=== PATIENT | female | born 1950 | race Asian ===

== ENCOUNTER 2022-01-06 08:00 | Inpatient (IN) ==
[~2022-01-06 08:00] MED LIST: ACETAMINOPHEN 325 MG TABLET PO PRN; DEXTROSE 10% 250 ML BAG IV PRN; GLUCAGON 1 MG VIAL IM PRN; MAGNESIUM HYDROXIDE SUSP 30 ML UDCUP PO PRN; NALOXONE 0.4 MG/ML VIAL IV PRN; traMADol 50 MG TABLET PO PRN
[2022-01-06 09:19] LABS: Eosinophils % 1.3 % (0.00-10.9); Hematocrit 28.4 VOL% (35.7-47.0); Hemoglobin 9.2 GM/DL (12.0-16.0); Immature Granulocytes % 0.3 %; Immature Granulocytes Absolute 0.01 #; Lymphocytes # 1.1 10*3/uL (1.4-4.0); Lymphocytes % 33.8 % (21.3-54.2); Mean Corpuscular HGB Conc 32.4 GM/DL (32-36); Mean Corpuscular Volume 90.7 FL (87-102); Mean Platelet Volume 10.4 FL (9.6-12.0); Monocytes # 0.5 10*3/uL (0.11-0.8); Monocytes % 16.2 % (1.7-12.7); Neutrophils % 47.4 % (38.7-73.9); Platelet Count 179 T/CUMM (130-400); Red Blood Count 3.13 MC/CUMM (3.8-5.5); Red Cell Distribution Width 13.2 % (9.3-17.3); White Blood Count 3.1 T/CUMM (4-12)
[2022-01-06 09:33] LABS: PT Patient Result 11.1 SECS (10.1-12.1)
[2022-01-06 09:50] LABS: Eosinophils 3 % (0-10); Lymphocytes 29 % (20-55); Platelet Estimate Adequate; Total Cells Counted 100
[2022-01-06 09:51] LABS: Calcium 6.8 MG/DL (8.5-10.1); Osmolality,Calculated 282.8 MOS/KG (273-304); Phosphorous 7.8 MG/DL (2.5-4.9); Potassium 4.7 MMOL/L (3.5-5.1); Risk Ratio 2.86; VLDL Cholesterol 39.8 MG/DL
[2022-01-06] MEDS ORDERED: DIAZEPAM 5 MG TABLET PO ONE (10:06)
[2022-01-06] MEDS ORDERED: BUPIVACAINE MPF 0.25% 10 ML VIAL ONE (10:13)
[2022-01-06] MEDS ORDERED: TISSUE ADHESIVE 1 EACH APPLICATOR TOP ONE (10:13)
[2022-01-06] MEDS ORDERED: LIDOCAINE 1%/EPI INJ 20 ML VIAL ONE (10:14)
[2022-01-06] MEDS ORDERED: fentaNYL 100 MCG/2 ML VIAL ONE (11:51)
[2022-01-06] MEDS ORDERED: propofoL 200 MG/20 ML VIAL IV ONE (11:51)
[2022-01-06] MEDS ORDERED: ETOMIDATE 40 MG/20 ML VIAL IV ONE (11:51)
[2022-01-06] MEDS ORDERED: LIDOCAINE 2% 5 ML VIAL ONE (11:51)
[2022-01-06] MEDS ORDERED: SEVOFLURANE 1 UNIT/15 MINUTE INH ONE ×4 (12:11→13:09)
[2022-01-06] MEDS ORDERED: ONDANSETRON 4 MG/2 ML VIAL ONE (12:11)
[2022-01-06] MEDS ORDERED: EPOETIN ALFA-EPBX 10,000 UNIT/ML VIAL SUBCUT ONE (12:30)
[2022-01-06] MEDS ORDERED: ePHEDrine 50 MG/ML VIAL ONE (12:32)
[2022-01-06] MEDS ORDERED: SUGAMMADEX 200 MG/2 ML VIAL IV ONE (12:35)
[2022-01-06] MEDS ORDERED: PHENYLEPHRINE 1 MG/10 ML SYRINGE IV ONE (12:36)
[2022-01-06] MEDS: PANTOPRAZOLE 40 MG TABLET PO SCH (13:42)
[2022-01-06] MEDS: INSULIN LISPRO 100 UNIT/ML SUBCUT SCH ×2 (13:42→17:05)
[2022-01-06] MEDS: SODIUM CHLORIDE 0.9% 250 ML IV SCH (14:06)
[2022-01-06] MEDS ORDERED: ZOLPIDEM 5 MG TABLET PO PRN (15:56)
[2022-01-06] MEDS: SODIUM BICARBONATE 650 MG TABLET PO SCH ×2 (17:03→21:25)
[2022-01-06] MEDS: carvediloL 25 MG TABLET PO SCH (17:04)
[2022-01-06] MEDS: DOXAZOSIN 1 MG TABLET PO SCH (21:25)
[2022-01-07] MEDS: HYDROmorphone 1 MG/1 ML SYRINGE IV PRN ×2 (01:34→11:44)
[2022-01-07] MEDS: SODIUM CHLORIDE 0.9% 250 ML IV SCH ×2 (02:21→11:41)
[2022-01-07 05:25] LABS: % Iron Saturation 10.4 % (18-50); Ferritin 242.2 ng/mL (8-252)
[2022-01-07 06:00] LABS: Hepatitis B Core IgM Quant 0.06 Index; Hepatitis B Surface Ag Quant < 0.10 Index; Hepatitis B Surface Ag Result Non-Reactive (NonReactive); Hepatitis C Virus Ab Quant < 0.02 Index; Hepatitis C Virus Ab Result Non-Reactive (NonReactive)
[2022-01-07] MEDS: SEVELAMER CARBONATE 800 MG TABLET PO SCH ×3 (09:18→17:31)
[2022-01-07] MEDS: PANTOPRAZOLE 40 MG TABLET PO SCH (09:18)
[2022-01-07] MEDS: amLODIPine 10 MG TABLET PO SCH (09:18)
[2022-01-07] MEDS: carvediloL 25 MG TABLET PO SCH ×2 (09:18→17:32)
[2022-01-07] MEDS: SODIUM BICARBONATE 650 MG TABLET PO SCH ×3 (09:18→21:19)
[2022-01-07] MEDS: INSULIN LISPRO 100 UNIT/ML SUBCUT SCH ×2 (09:37→17:34)
[2022-01-07] MEDS: IRON SUCROSE 300 MG in SODIUM CHLORIDE 0.9% 100 ML IV SCH (11:42)
[2022-01-07] MEDS: ONDANSETRON 4 MG/2 ML VIAL IV PRN (15:24)
[2022-01-07] MEDS: DOXAZOSIN 1 MG TABLET PO SCH (21:19)
[2022-01-08] MEDS: SODIUM CHLORIDE 0.9% 250 ML IV SCH ×2 (01:08→14:14)
[2022-01-08] MEDS: INSULIN LISPRO 100 UNIT/ML SUBCUT SCH ×2 (07:25→17:00)
[2022-01-08] MEDS: PANTOPRAZOLE 40 MG TABLET PO SCH (08:48)
[2022-01-08] MEDS: SEVELAMER CARBONATE 800 MG TABLET PO SCH ×3 (08:49→17:12)
[2022-01-08] MEDS: carvediloL 25 MG TABLET PO SCH ×2 (08:49→17:13)
[2022-01-08] MEDS: SODIUM BICARBONATE 650 MG TABLET PO SCH ×3 (08:49→21:35)
[2022-01-08] MEDS: amLODIPine 10 MG TABLET PO SCH (08:49)
[2022-01-08] MEDS: IRON SUCROSE 300 MG in SODIUM CHLORIDE 0.9% 100 ML IV SCH (08:51)
[2022-01-08] MEDS: ONDANSETRON 4 MG/2 ML VIAL IV PRN ×2 (10:59→18:32)
[2022-01-08] MEDS: DOXAZOSIN 1 MG TABLET PO SCH (21:35)
[2022-01-09] MEDS: SODIUM CHLORIDE 0.9% 250 ML IV SCH (01:34)
[2022-01-09 06:07] LABS: Basophils % 0.4 % (0.0-0.8); Eosinophils % 0.4 % (0.00-10.9); Hematocrit 23.7 VOL% (35.7-47.0); Hemoglobin 8.1 GM/DL (12.0-16.0); Immature Granulocytes % 1.1 %; Immature Granulocytes Absolute 0.05 #; Lymphocytes # 0.7 10*3/uL (1.4-4.0); Lymphocytes % 15.4 % (21.3-54.2); Mean Corpuscular HGB Conc 34.2 GM/DL (32-36); Mean Corpuscular Volume 88.1 FL (87-102); Mean Platelet Volume 10.4 FL (9.6-12.0); Monocytes # 0.8 10*3/uL (0.11-0.8); Monocytes % 16.7 % (1.7-12.7); Platelet Count 167 T/CUMM (130-400); Red Blood Count 2.69 MC/CUMM (3.8-5.5); Red Cell Distribution Width 13.3 % (9.3-17.3); White Blood Count 4.5 T/CUMM (4-12)
[2022-01-09 06:27] LABS: Albumin 3.1 G/DL (3.4-5.0); Calcium 6.4 MG/DL (8.5-10.1); Osmolality,Calculated 294.5 MOS/KG (273-304); Phosphorous 4.7 MG/DL (2.5-4.9); Potassium 3.7 MMOL/L (3.5-5.1)
[2022-01-09 06:33] LABS: Band Neutrophils 1 % (0-10); Lymphocytes 9 % (20-55); Platelet Estimate Adequate; Total Cells Counted 100
[2022-01-09 06:34] LABS: Hypochromia Slight; Microcytosis Slight
[2022-01-09] MEDS: INSULIN LISPRO 100 UNIT/ML SUBCUT SCH (07:51)
[2022-01-09] MEDS: SODIUM BICARBONATE 650 MG TABLET PO SCH (08:29)
[2022-01-09] MEDS: PANTOPRAZOLE 40 MG TABLET PO SCH (08:29)
[2022-01-09] MEDS: amLODIPine 10 MG TABLET PO SCH (08:29)
[2022-01-09] MEDS: SEVELAMER CARBONATE 800 MG TABLET PO SCH ×2 (08:29→12:32)
[2022-01-09] MEDS: carvediloL 25 MG TABLET PO SCH (08:30)
[2022-01-09 11:19] VITALS: BP 160/65
== END 2022-01-09 15:25 | disposition home or self-care (01) | DRG 673 ==
LOC: N.SDSINP 08:22 → N.3E 13:38
PROVIDERS: ADMIT Internal Medicine Nephrology; ATTEND Internal Medicine Nephrology